=== PATIENT | female | born 1980 | race Caucasian/White ===

== ENCOUNTER 2017-06-28 12:32 | Emergency (ER) | payer OTHER ==
[~2017-06-28] VITALS: Ht 165.1 cm; Wt 142.7 kg
[2017-06-28] MEDS ORDERED: METF500T4 PO (12:54)
[2017-06-28] MEDS ORDERED: GLIP10 PO (12:54)
[2017-06-28 12:57] LABS: GLUCOSE,POINT OF CARE 262 MG/DL (70-110)
[2017-06-28 13:50] LABS: BASOPHILS # (AUTO) 0.02 K/uL (0.00-0.20); BASOPHILS % (AUTO) 0.3 % (0.0-2.0); EOSINOPHILS # (AUTO) 0.28 K/uL (0.00-0.70); EOSINOPHILS % (AUTO) 3.16 % (1.0-6.0); HEMATOCRIT 37.8 % (36-46); LYMPHOCYTES # (AUTO) 1.6 K/uL (1.0-4.8); LYMPHOCYTES % (AUTO) 18.2 % (22.0-44.0); MEAN CORPUSCULAR HGB CONC 34.5 G/dL (31.0-37.0); MEAN CORPUSCULAR VOLUME 87 fL (80-100); MONOCYTES # (AUTO) 0.6 K/uL (0.1-1.0); MONOCYTES % (AUTO) 6.2 % (2.0-9.0); NEUTROPHILS # (AUTO) 6.4 K/uL (1.8-7.7); NEUTROPHILS % (AUTO) 72.2 % (40.0-70.0); PLATELET COUNT (AUTO) 277 K/uL (150-450); RED BLOOD CELL COUNT(AUTO) 4.34 MIL/uL (4.00-5.20); RED CELL DISTRIBUTION WIDTH 13.5 % (11.5-14.5); WHITE BLOOD COUNT (AUTO) 8.9 K/uL (4.5-11.0)
[2017-06-28 13:54] LABS: ANION GAP 10 mmol/L (8-16); CALCIUM, TOTAL 8.6 mg/dL (8.8-10.5); CARBON DIOXIDE 27 mmol/L (22-29); CHLORIDE 100 mmol/L (98-107); CREATININE 0.59 mg/dL (0.60-1.30); GLOMERULAR FILTR. RATE CALC > 60 mL/min (>60); POTASSIUM 3.7 mmol/L (3.5-5.1); SODIUM SERUM 137 mmol/L (136-145); UREA NITROGEN, BLOOD 13 mg/dL (7-18)
[2017-06-28 14:00] LABS: ALANINE AMINOTRANSFERASE 45 U/L (12-78); ALBUMIN 3.4 g/dL (3.4-5.0); ASPARTATE AMINOTRANSFERASE 37 U/L (15-37); BILIRUBIN,TOTAL 0.6 mg/dL (0.1-1.0); TOTAL PROTEIN, SERUM 7.5 g/dL (6.4-8.2)
[2017-06-28] MEDS ORDERED: ONDANSETRON HCL 4 MG TABLET PO ONE (14:30)
[2017-06-28 15:02] LABS: GLUCOSE, URINE (UA) >=1000 mg/dL (NEGATIVE); KETONES,URINE TRACE mg/dL (NEGATIVE); LEUKOCYTE ESTERASE ,URINE NEGATIVE (NEGATIVE); OCCULT BLOOD,URINE LARGE (NEGATIVE); PROTEIN,URINE NEGATIVE (NEGATIVE)
[2017-06-28 15:10] LABS: ADD UA MICROSCOPIC YES; APPEARANCE,URINE HAZY (CLEAR)
[2017-06-28 15:11] LABS: SQUAMOUS EPITHELIAL CELL,UR Moderate /LPF (None Seen); WBC,URINE 0-2 /HPF (0-5)
[2017-06-28 15:56] VITALS: BP 139/89
== END 2017-06-28 16:19 | disposition home or self-care (01) ==
LOC: EMS 12:34
DX: R10.84 Generalized abdominal pain (principal); E11.9 Type 2 diabetes mellitus without complications
CPT/HCPCS: 36415; 76700; 80053; 81001; 82962; 83690; 84703; 85025; 99285; Q0162

== ENCOUNTER 2019-09-16 15:32 | Emergency (ER) | payer OTHER ==
[~2019-09-16] VITALS: Ht 167.6 cm; Wt 127.3 kg
[~2019-09-16 15:32] MED LIST: GLIP10 PO; METF-960 PO
[2019-09-16 16:00] LABS: GLUCOSE,POINT OF CARE 292 MG/DL (70-110)
[2019-09-16 19:17] LABS: INFLUENZA TYPE A NEGATIVE FOR TYPE A (NEGATIVE); INFLUENZA TYPE B POSITIVE FOR TYPE B (NEGATIVE)
[2019-09-16 19:53] VITALS: BP 123/81
== END 2019-09-16 19:56 | disposition home or self-care (01) ==
LOC: EMS 15:32
DX: J11.1 Influenza due to unidentified influenza virus with other respiratory manifestations (principal); M79.10 Myalgia, unspecified site; E11.9 Type 2 diabetes mellitus without complications
CPT/HCPCS: 87430; 87804

== ENCOUNTER 2019-09-24 09:20 | Emergency (ER) | payer OTHER ==
[~2019-09-24] VITALS: Ht 167.6 cm; Wt 127.3 kg
[2019-09-24 09:37] LABS: GLUCOSE,POINT OF CARE 261 MG/DL (70-110)
[2019-09-24 12:05] VITALS: BP 152/87
== END 2019-09-24 12:08 | disposition home or self-care (01) ==
LOC: EMS 09:23
DX: J40 Bronchitis, not specified as acute or chronic (principal); E11.9 Type 2 diabetes mellitus without complications

== ENCOUNTER 2022-12-30 15:23 | Emergency (ER) | payer OTHER ==
[~2022-12-30] VITALS: Ht 157.5 cm; Wt 122.7 kg
[2022-12-30 15:33] VITALS: BP 139/94
[2022-12-30] MEDS ORDERED: IBUPROFEN 600 MG TABLET PO ONE (16:30)
[2022-12-30] MEDS ORDERED: IBUP-1492 PO (17:03)
== END 2022-12-30 17:31 | disposition home or self-care (01) ==
LOC: EMS 15:27
DX: M75.31 Calcific tendinitis of right shoulder (principal); Z98.890 Other specified postprocedural states
CPT/HCPCS: 99283

== ENCOUNTER 2024-04-28 20:19 | Emergency (ER) | payer OTHER ==
[~2024-04-28] VITALS: Ht 160 cm; Wt 124.5 kg
[~2024-04-28 20:19] MED LIST changes: -GLIP10 PO; +IBUP-1492 PO; -METF-960 PO
[2024-04-28 20:42] VITALS: TEMP 98.4
[2024-04-28] MEDS: ACETAMINOPHEN 500 MG TABLET PO ONE (21:28)
[2024-04-28] MEDS: IBUPROFEN 600 MG TABLET PO ONE (21:29)
[2024-04-28 23:25] VITALS: BP 141/95; PULSE 77; RESP 18; O2SAT 99
== END 2024-04-28 23:40 | disposition home or self-care (01) ==
LOC: EMS 20:19
DX: S89.92XA Unspecified injury of left lower leg, initial encounter (principal); E11.9 Type 2 diabetes mellitus without complications; W22.8XXA Striking against or struck by other objects, initial encounter; Y93.89 Activity, other specified; Y92.89 Other specified places as the place of occurrence of the external cause; Y99.8 Other external cause status
CPT/HCPCS: 29505; 82962; 99283

== ENCOUNTER 2024-08-22 20:31 | Emergency (ER) | payer OTHER ==
[~2024-08-22] VITALS: Ht 157.5 cm; Wt 140.0 kg
[2024-08-22 20:56] VITALS: BP 142/70; PULSE 92; RESP 16; TEMP 98.3; O2SAT 100
[2024-08-23] MEDS: KETOROLAC TROMETHAMINE 30 MG/ML VIAL IM ONE (01:51)
[2024-08-23] MEDS: ACETAMINOPHEN 500 MG TABLET PO ONE (01:52)
[2024-08-23] MEDS: METHOCARBAMOL 500 MG TABLET PO ONE (01:52)
[2024-08-23] MEDS: LIDOCAINE 5% TRANSDERMAL PATCH TD ONE (01:52)
[2024-08-23] MEDS ORDERED: METH-812 PO (03:19)
== END 2024-08-23 03:44 | disposition home or self-care (01) ==
LOC: EMS 20:31
DX: M54.2 Cervicalgia (principal); M54.6 Pain in thoracic spine; E11.9 Type 2 diabetes mellitus without complications; I10 Essential (primary) hypertension; Z98.890 Other specified postprocedural states; V49.40XA Driver injured in collision with unspecified motor vehicles in traffic accident, initial encounter; Y93.89 Activity, other specified; Y92.410 Unspecified street and highway as the place of occurrence of the external cause; Y99.8 Other external cause status
CPT/HCPCS: 99284; 84703; 72050; 72110; 96372; J1885